=== PATIENT | male | born 1975 ===

== ENCOUNTER 2018-02-05 19:43 | Emergency (ER) | payer OTHER ==
[2018-02-05 19:43] VITALS: BMI 33.3
[2018-02-05 21:00] VITALS: BP 166/91; PULSE 56; RESP 18; TEMP 98.3; O2SAT 99
[2018-02-05] MEDS ORDERED: Sodium Chloride 0.9% 1,000 ML IV STA (21:43)
--- NOTE | 2018-02-05 22:17 | ED PDOC ---
HPI: Abdomen Time Seen by Provider: 02/05/18 21:24 Chief Complaint (Nursing): Male Genitourinary Chief Complaint (Provider): Left flank pain History Per: Patient History/Exam Limitations: no limitations Onset/Duration Of Symptoms: Hrs (since 14:00) Current Symptoms Are (Timing): Constant Severity: Moderate Location Of Pain/Discomfort: Other (left flank ) Associated Symptoms: Urinary Symptoms (dysuria and hematuria). denies: Fever, Nausea, Vomiting, Diarrhea Additional Complaint(s): 42 year old male presented to ED with left flank pain since 14:00 today. Patient described pain as constant and moderate and took motrin today. He reports dysuria and hematuria but denies nausea, vomiting, diarrhea, fever, and chills. PCP: none provided Past Medical History Reviewed: Historical Data, Nursing Documentation, Vital Signs Vital Signs: Last Vital Signs Temp 98.3 F 02/05/18 20:58 Pulse 56 L 02/05/18 20:58 Resp 18 02/05/18 20:58 BP 166/91 H 02/05/18 20:58 Pulse Ox 99 02/06/18 01:52 - Medical History PMH: No Chronic Diseases - Surgical History Surgical History: No Surg Hx - Family History Family History: States: Unknown Family Hx - Immunization History Hx Tetanus Toxoid Vaccination: No Hx Influenza Vaccination: Yes Hx Pneumococcal Vaccination: No - Home Medications Home Medications: Ambulatory Orders Medication Instructions Recorded No Known Home Med 03/05/17 - Allergies Allergies/Adverse Reactions: Allergies Allergy/AdvReac Type Severity Reaction Status Date / Time No Known Allergies Allergy Verified 02/05/18 20:57 Review of Systems ROS Statement: Except As Marked, All Systems Reviewed And Found Negative Constitutional: Negative for: Fever, Chills Gastrointestinal: Positive for: Other (left flank pain). Negative for: Nausea, Vomiting, Diarrhea Physical Exam - Reviewed Nursing Documentation Reviewed: Yes Vital Signs Reviewed: Yes - Physical Exam Appears: Positive for: Non-toxic, No Acute Distress Head Exam: Positive for: ATRAUMATIC, NORMAL INSPECTION, NORMOCEPHALIC Skin: Positive for: Normal Color, Warm, Dry Eye Exam: Positive for: Normal appearance, EOMI, PERRL ENT: Positive for: Normal ENT Inspection Neck: Positive for: Normal, Painless ROM Cardiovascular/Chest: Positive for: Regular Rate, Rhythm. Negative for: Murmur Respiratory: Positive for: Normal Breath Sounds. Negative for: Wheezing, Respiratory Distress Gastrointestinal/Abdominal: Positive for: Tenderness (LLQ) Back: Positive for: L CVA Tenderness. Negative for: R CVA Tenderness Extremity: Positive for: Normal ROM (upper/lower) Neurologic/Psych: Positive for: Alert, Oriented. Negative for: Motor/Sensory Deficits - Laboratory Results Result Diagrams: 02/05/18 22:06 02/05/18 22:06 - ECG O2 Sat by Pulse Oximetry: 99 (RA) Pulse Ox Interpretation: Normal - Progress Re-evaluation Time: 01:50 Condition: Re-examined, Improved Medical Decision Making Medical Decision Making: Initial Impression: left flank pain with hematuria Differential: Renal colic with ureteral stones and UTI Initial plan CT Abd/pelvis with IV contrast BMP ED urine dipstick CBC Toradol 30mg IV Sodium chloride 1000ml IV Urinalysis Time: 01:37 CT Abd/pelvis with IV contrast FINDINGS: Small calcification in the right midlung. The liver, spleen, pancreas are normal. No gallstones. No hydronephrosis or perinephric stranding. Punctate hypoattenuating right renal lesion too small to characterize. The urinary bladder appears normal. The prostate and seminal vesicles are prominent. No aortic aneurysm or dissection. The bowel appears normal. A normal appendix is identified coronal images 52 through 70. IMPRESSION: No acute findings. Borderline prominent prostate. Recommend correlation with PSA level. Upon provider evaluation patient is medically stable, and requires no further treatment in the ED at this time. Patient will be discharged. Counseling was provided and all questions were answered regarding diagnosis and need for follow up with PCP in 2-3 days There is agreement to discharge plan. Return if symptoms persist or worsen. Scribe Attestation: Documented by Solo Reyez and Bandar Waddell acting as scribes for Renetta Tolliver MD. Provider Scribe Attestation: All medical record entries made by the Tamekaibe were at my direction and personally dictated by me. I have reviewed the chart and agree that the record accurately reflects my personal performance of the history, physical exam, medical decision making, and the department course for this patient. I have also personally directed, reviewed, and agree with the discharge instructions and disposition. Disposition - Clinical Impression Clinical Impression: Flank pain - Patient ED Disposition Is Patient to be Admitted: No Counseled Patient/Family Regarding: Studies Performed, Diagnosis - Disposition Referrals: [facility] [Outside] Disposition: Routine/Home Disposition Time: 01:50 Condition: GOOD Additional Instructions: Take motrin for pain. Follow up with your PCP in 2-3 days. Instructions: Flank Pain (DC) Print Language: SCOTTISH
[2018-02-05 22:18] LABS: URINE BILIRUBIN NEGATIVE (NEGATIVE); URINE BLOOD NEGATIVE (NEGATIVE); URINE CLARITY CLEAR (Clear); URINE COLOR STRAW (YELLOW); URINE GLUCOSE (UA) NEG (Normal); URINE LEUKOCYTE ESTERASE NEG Leu/uL (Negative); URINE PROTEIN NEGATIVE (NEGATIVE); URINE UROBILINOGEN 0.2-1.0 mg/dL (0.2-1.0)
[2018-02-05 22:19] LABS: BASO % 0.7 % (0.0-2.0); EOS # 0.1 K/uL (0.0-0.7); EOS % 2.7 % (0.0-4.0); HEMOGLOBIN 14.3 g/dL (12.0-18.0); LYMPH # 2.2 K/uL (1.0-4.3); LYMPH % 43.6 % (20.0-40.0); MEAN CELL VOLUME 86.4 fl (80.0-94.0); MEAN CORPUSCULAR HEMOGLOBIN 28.5 pg (27.0-31.0); MEAN PLATELET VOLUME 9.7 fl (7.2-11.7); MONO # 0.4 K/uL (0.0-0.8); MONO % 8.7 % (0.0-10.0); NEUT # 2.2 K/uL (1.8-7.0); NEUT % 44.3 % (50.0-75.0); NRBC % 0.1 % (0.0-0.0); RBC 5.01 Mil/uL (4.40-5.90); WHITE BLOOD COUNT 5.1 K/uL (4.8-10.8)
[2018-02-05 22:23] LABS: BLOOD UREA NITROGEN 14 mg/dl (9-20); CALCIUM 8.8 mg/dL (8.4-10.2); GFR AFRICAN-AMERICAN > 60; GFR NON-AFRICAN AMERICAN > 60
[2018-02-05] MEDS ORDERED: Iohexol 240 (50 ml) ONE (23:38)
[2018-02-06] MEDS ORDERED: Iohexol 300 100 ML IJ ONE (00:26)
[2018-02-06] MEDS ORDERED: Sodium Chloride 0.9% 100 ML ONE (00:26)
--- NOTE | 2018-02-06 01:37 | CT ---
EXAM: CT Abdomen and Pelvis With Intravenous Contrast EXAM DATE/TIME: 02/05/2018 9:41 PM CLINICAL HISTORY: 42 years old, male; Pain; Abdominal pain; Flank; Left; Additional info: Left flank pain hematuria TECHNIQUE: Axial computed tomography images of the abdomen and pelvis with intravenous contrast. All CT scans at this facility use one or more dose reduction techniques, viz.: automated exposure control; ma/kV adjustment per patient size (including targeted exams where dose is matched to indication; i.e. head); or iterative reconstruction technique. Coronal and sagittal reformatted images were created and reviewed. CONTRAST: 95 mL of [id number] administered intravenously. COMPARISON: No relevant prior studies available. FINDINGS: Small calcification in the right midlung. The liver, spleen, pancreas are normal. No gallstones. No hydronephrosis or perinephric stranding. Punctate hypoattenuating right renal lesion too small to characterize. The urinary bladder appears normal. The prostate and seminal vesicles are prominent. No aortic aneurysm or dissection. The bowel appears normal. A normal appendix is identified coronal images 52 through 70. IMPRESSION: No acute findings. Borderline prominent prostate. Recommend correlation with PSA level.
== END 2018-02-06 02:01 | disposition home or self-care (01) ==
LOC: H.ER 19:43
DX: R10.32 Left lower quadrant pain (principal); R30.0 Dysuria; R31.9 Hematuria, unspecified
CPT/HCPCS: 74177; 80048; 81003; 85025; 96361; 96374; 99283; J1885; J7040; Q9967

== ENCOUNTER 2018-11-07 10:13 | Emergency (ER) | payer OTHER ==
[2018-11-07 10:22] VITALS: BMI 29.7
[2018-11-07 10:24] VITALS: BP 175/99; PULSE 74; RESP 20; TEMP 98.8; O2SAT 99
--- NOTE | 2018-11-07 11:14 | ED PDOC ---
Upper Extremity Pain/Injury Time Seen by Provider: 11/07/18 10:43 Chief Complaint (Nursing): Upper Extremity Problem/Injury History Per: Patient, [employer] (Urdu [id number]) Additional Complaint(s): Pt. states since Thursday he's had atraumatic R shoulder pain that radiates down the R upper arm. Pain is worsened with movement of the R shoulder. Admits to taking tetracycline (left over from previous "stomach infection") yesterday to help with inflammation. Pt. is R hand dominant. Denies chest pain, SOB, weakness, numbness, tingling, trauma, fever, chills. Past Medical History Reviewed: Historical Data, Nursing Documentation, Vital Signs Vital Signs: Last Vital Signs Temp 98.8 F 11/07/18 10:23 Pulse 74 11/07/18 10:23 Resp 20 11/07/18 10:23 BP 175/99 H 11/07/18 10:23 Pulse Ox 99 11/07/18 10:23 - Family History Family History: States: No Known Family Hx - Immunization History Hx Tetanus Toxoid Vaccination: No Hx Influenza Vaccination: Yes Hx Pneumococcal Vaccination: No - Home Medications Home Medications: Ambulatory Orders Medication Instructions Recorded Meloxicam [Mobic] 1 - 2 tab PO DAILY PRN #10 tab 11/07/18 - Allergies Allergies/Adverse Reactions: Allergies Allergy/AdvReac Type Severity Reaction Status Date / Time No Known Allergies Allergy Verified 02/05/18 20:57 Review of Systems ROS Statement: Except As Marked, All Systems Reviewed And Found Negative Musculoskeletal: Positive for: Shoulder Pain Physical Exam - Physical Exam Appears: Positive for: Well, Non-toxic, No Acute Distress Skin: Positive for: Normal Color, Warm. Negative for: Rash Eye Exam: Positive for: Normal appearance Cardiovascular/Chest: Positive for: Regular Rate, Rhythm Respiratory: Positive for: Normal Breath Sounds. Negative for: Respiratory Distress Back: Positive for: Normal Inspection. Negative for: L CVA Tenderness, R CVA Tenderness, Vertebral Tenderness Extremity: Positive for: Other (Right upper extremity: R lateral and trapezius shoulder tenderness without deformity, warmth, erythema, break in skin integrity; radial pulse 2+ b/l; equal set painter strenght b/l) Neurologic/Psych: Positive for: Alert, Oriented (x3) - ECG O2 Sat by Pulse Oximetry: 99 - Progress ED Course And Treament: Toradol 30mg IM, shoulder x-ray ordered. Disposition - Clinical Impression Clinical Impression: Shoulder pain - Patient ED Disposition Is Patient to be Admitted: No - Disposition Referrals: [facility] [Outside] Disposition: Routine/Home Disposition Time: 11:43 Condition: STABLE Additional Instructions: FOLLOW UP WITH [facility] FOR FURTHER EVALUATION RETURN TO ED IMMEDIATELY IF SYMPTOMS WORSEN [facility], thank you for letting us take care of you today. Your provider was Jose De Jesus Marino MD and you were treated for RT SHOULDER PAIN. The emergency medical care you received today was directed at your acute symptoms. If you were prescribed any medication, please fill it and take as directed. It may take several days for your symptoms to resolve. Return to the Emergency Department if your symptoms worsen, do not improve, or if you have any other problems. Please contact your doctor or call one of the physicians/clinics you have been referred to that are listed on the Patient Visit Information form that is included in your discharge packet. Bring any paperwork you were given at discharge with you along with any medications you are taking to your follow up visit. Our treatment cannot replace ongoing medical care by a primary care provider outside of the emergency department. Thank you for allowing the [facility] team to be part of your care today. If you had an X-Ray or CT scan: A Radiologist will review the ED reading if any change in treatment is needed we will contact you. If you had a blood, urine, or wound culture: It will take several days for the results, if any change in treatment is needed we will contact you. If you had an STI test: It will take 48 hours for the results. Please call after 1 week if you have not heard back. Prescriptions: Meloxicam [Mobic] 1 - 2 tab PO DAILY PRN #10 tab PRN Reason: Pain Instructions: Shoulder Pain (DC) Forms: [employer] (Italian) Print Language: GERMAN
--- NOTE | 2018-11-07 12:59 | RAD ---
PROCEDURE: Radiographs of the Right Shoulder HISTORY: pain COMPARISON: None available FINDINGS: BONES: No acute displaced fracture. The distal clavicle and underlying ribs appear intact. JOINTS: No acute dislocation. SOFT TISSUES: Soft tissues appear unremarkable. No evidence of radiopaque foreign body. IMPRESSION: No acute displaced fracture or dislocation evident. If symptoms persist or if there is continued clinical concern, x-ray follow-up in 7-10 days should be considered.
== END 2018-11-07 11:55 | disposition home or self-care (01) ==
LOC: H.ER 10:13
DX: M25.511 Pain in right shoulder (principal)
CPT/HCPCS: 73030; 96372; 99283; J1885